=== PATIENT | female | born 1955 | race Two or more races ===

== ENCOUNTER 2019-11-11 19:58 | Emergency (ER) | payer SELFPAY ==
[~2019-11-11] VITALS: Ht 162.6 cm; Wt 68.0 kg
[2019-11-11 20:00] VITALS: BP 124/68
[2019-11-11] MEDS ORDERED: LORazepam Inj 2mg/ml 1ml IV ONE (20:00)
[2019-11-11] MEDS ORDERED: Metoclopramide 10mg/2ml Inj IVP ONE (20:00)
[2019-11-11] MEDS ORDERED: Meclizine 25mg tab ORAL PRN (20:00)
--- NOTE | 2019-11-11 20:00 | NUR ---
ED Nurse Note: Pt brought into ED from home by DENEEN RA 26 for c/o N/V onset today. Pt went to clinic today for same complaint and was sent home and had no relief. Pt also reports tingling and pain in L leg. Pt is able to move L leg and pedal pulses are present. Pt appears anxious. Pt was given 4mg zofran PO en route by [facility] medic. Pt is aaox4, breathing is normal and unlabored. Vital signs are stable. No cough, SOB or fever noted. Pt connected to national sales associate with all safety measures in place. Will continue to montior.
[2019-11-11] MEDS ORDERED: Meclizine 25mg tab ONE (20:16)
[2019-11-11] MEDS ORDERED: LORazepam Inj 2mg/ml 1ml ONE (20:16)
[2019-11-11] MEDS ORDERED: Metoclopramide 10mg/2ml Inj ONE (20:16)
--- NOTE | 2019-11-11 20:19 | Emergency Room Report ---
History of Present Illness General Chief Complaint: Behavioral Complaint Source: Patient, EMS Present Illness HPI Patient is a 64-year-old female past medical history of diabetes who presents to the ER complaining of nausea and vomiting for the past 9 days. Patient states that she has dizziness where she feels a room spinning sensation associated with nausea and vomiting. Patient states that she went to [facility] where they discharged her without any medications. Patient denies any fever or chills. She complains of generalized weakness. Patient appears anxious. She denies any chest pain or shortness of breath. She complains of an acid type feeling in her throat. She denies any focal weakness. Patient was brought in by EMS. 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 COVID-19 Screening: Negative COVID-19 COVID-19 Testing Source: UNKNOWN CLINIC Patient History Now: No Reviewed Nursing Documentation: PMH: Agreed; PSxH: Agreed Nursing Documentation-PMH Hx Cardiac Problems: No Hx Hypertension: No Hx Pacemaker: No Hx Asthma: No Hx COPD: No Hx Diabetes: Yes Hx Cancer: No Hx Gastrointestinal Problems: No Hx Dialysis: No History Of Psychiatric Problem: No Hx Neurological Problems: No Hx Cerebrovascular Accident: No Hx Seizures: No Review of Systems All Other Systems: negative except mentioned in HPI Physical Exam Vital Signs Date Time Temp Pulse Resp B/P (MAP) Pulse Ox O2 Delivery O2 Flow Rate FiO2 11/11/19 19:53 85 16 124/68 (86) 100 Room Air Sp02 EP Interpretation: reviewed, normal General Appearance: alert, GCS 15, non-toxic, mild distress Head: normocephalic, atraumatic Eyes: bilateral eye normal inspection, bilateral eye PERRL ENT: hearing grossly normal, normal pharynx, no angioedema, normal voice, dry mucus membranes Neck: full range of motion, supple/symm/no masses Respiratory: chest non-tender, lungs clear, normal breath sounds, speaking full sentences Cardiovascular #1: regular rate, rhythm, no edema Cardiovascular #2: 2+ carotid (R), 2+ carotid (L) Gastrointestinal: normal bowel sounds, non tender, soft, non-distended, no guarding, no rebound Rectal: deferred Genitourinary: normal inspection, no CVA tenderness Musculoskeletal: normal range of motion Neurologic: family court counsellor III-XII nml as tested, oriented x3 Psychiatric: anxious Skin: no rash Lymphatic: no adenopathy Medical Decision Making Diagnostic Impression: Primary Impression: Vertigo Additional Impressions: Nausea and vomiting Hypokalemia ER Course Patient given IV fluids, Reglan, 1 mg of Ativan and 50 mg of meclizine. On reevaluation at 9:20 PM patient states that she feels much improved. She states that her dizziness, nausea and vomiting have resolved. She no longer appears anxious. Awaiting her labs and UA. Patient's CT brain demonstrates no acute intracranial pathology Patient's chemistry demonstrates mild hypokalemia with potassium of 3.2. 40 mEq of oral potassium chloride have been ordered. Patient CT demonstrates no acute intracranial pathology. Patient is tolerating p.o. and ambulating without difficulty. She is being discharged home with prescription for meclizine as well as Reglan. After discussing risks and benefits of further diagnostics, treatment plans, as well as indications for and risks of admission , the patient is agreeable to being discharged home. I have explained that their evaluation and treatment in the emergency department today is an important step towards them achieving better health but that their evaluation today is not intended to replace further evaluation and treatment by a physician in their local clinic. I have explained that while the current findings suggest no immediate life threatening emergency they will require further evaluation and treatment by a physician of their choice in their area. They understand that it will be necessary for them to review the final reports of their ED visit with their clinic physician. We have reviewed indications for return to the Emergency Department. I have explained that additional time may need to pass and/or additional testing as an outpatient may be necessary before a definitive diagnosis can be made. They tell me they are willing to follow up as instructed within the timeframe I recommend. They appear to understand what we discussed. Additionally they understand that if they are unable to be seen by an outpatient physician they are welcome, and in fact should, return to the Emergency Department for a repeat evaluation. The patient is stable at time of discharge.. Laboratory Tests Test 11/11/19 20:09 White Blood Count 6.1 K/UL (4.8-10.8) Red Blood Count 4.56 M/UL (4.20-5.40) Hemoglobin 12.9 G/DL (12.0-16.0) Hematocrit 39.0 % (37.0-47.0) Mean Corpuscular Volume 86 FL (80-99) Mean Corpuscular Hemoglobin 28.3 PG (27.0-31.0) Mean Corpuscular Hemoglobin Concent 33.1 G/DL (32.0-36.0) Red Cell Distribution Width 12.4 % (11.6-14.8) Platelet Count 172 K/UL (150-450) Mean Platelet Volume 8.2 FL (6.5-10.1) Neutrophils (%) (Auto) 62.6 % (45.0-75.0) Lymphocytes (%) (Auto) 30.5 % (20.0-45.0) Monocytes (%) (Auto) 5.7 % (1.0-10.0) Eosinophils (%) (Auto) 0.4 % (0.0-3.0) Basophils (%) (Auto) 0.8 % (0.0-2.0) Sodium Level 139 MMOL/L (136-145) Potassium Level 3.2 MMOL/L (3.5-5.1) L Chloride Level 100 MMOL/L (98-107) Carbon Dioxide Level 26 MMOL/L (21-32) Anion Gap 13 mmol/L (5-15) Blood Urea Nitrogen 22 mg/dL (7-18) H Creatinine 0.7 MG/DL (0.55-1.30) Estimated Glomerular Filtration Rate > 60 mL/min (>60) Glucose Level 211 MG/DL (74-106) H Calcium Level 8.7 MG/DL (8.5-10.1) Magnesium Level 2.2 MG/DL (1.8-2.4) Total Bilirubin 0.8 MG/DL (0.2-1.0) Aspartate Amino Transferase (AST) 30 U/L (15-37) Alanine Aminotransferase (ALT) 16 U/L (12-78) Alkaline Phosphatase 62 U/L (46-116) Troponin I 0.000 ng/mL (0.000-0.056) Total Protein 8.5 G/DL (6.4-8.2) H Albumin 3.4 G/DL (3.4-5.0) Globulin 5.1 g/dL Albumin/Globulin Ratio 0.7 (1.0-2.7) L EKG Diagnostic Results EKG Time: 20:48 EP Interpretation: Kelli Thomas MD Rate: normal - 85 bpm Rhythm: NSR ST Segments: no acute changes ASA given to the pt in ED: No Rhythm Strip Diag. Results Rhythm Strip Time: 20:19 EP Interpretation: yes - Kelli Thomas MD Rate: 74 bpm Rhythm: NSR Last Vital Signs Date Time Temp Pulse Resp B/P (MAP) Pulse Ox O2 Delivery O2 Flow Rate FiO2 11/11/19 19:53 85 16 124/68 (86) 100 Room Air Disposition: HOME, SELF-CARE Condition: Stable Scripts Metoclopramide Hcl* (REGLAN*) 10 Mg Tablet 10 MG ORAL THREE TIMES A DAY, #20 TAB Prov: Kelli Thomas M.D. 11/11/19 Meclizine Hcl* (MECLIZINE*) 25 Mg Tablet 25 MG ORAL THREE TIMES A DAY, #20 TAB Prov: Kelli Thomas M.D. 11/11/19 Additional Instructions: The patient was provided with discharge instructions, notified to follow-up with a primary care doctor and or specialist in the next 24-48 hours, and to return to the ED if they have worsening of their symptoms. Please note that this report is being documented using [employer] technology. This can lead to erroneous entry secondary to incorrect interpretation by the dictating instrument. Kelli Thomas M.D. Nov 11, 2019 20:19
--- NOTE | 2019-11-11 20:38 | Diagnostic Imaging Report ---
EXAM: CT Head Without Intravenous Contrast CLINICAL HISTORY: DIZZY TECHNIQUE: Axial computed tomography images of the head/brain without intravenous contrast. CTDI is 53 mGy and DLP is 970 mGy-cm. One or more of the following dose reduction techniques were used: automated exposure control, adjustment of the mA and/or kV according to patient size, use of iterative reconstruction technique. COMPARISON: None FINDINGS: Brain: Unremarkable. No hemorrhage. No significant white matter disease. No edema. Ventricles: Unremarkable. No ventriculomegaly. Bones/joints: Unremarkable. No acute fracture. Soft tissues: Unremarkable. Sinuses: There is ethmoid sinus mucosal thickening. Mastoid air cells: Unremarkable as visualized. No mastoid effusion. IMPRESSION: No acute intracranial process.
[2019-11-11 21:17] LABS: BASOPHILS % (AUTO) 0.8 % (0.0-2.0); EOSINOPHILS % (AUTO) 0.4 % (0.0-3.0); HEMOGLOBIN 12.9 G/DL (12.0-16.0); LYMPHOCYTES % (AUTO) 30.5 % (20.0-45.0); MEAN CORPUSCULAR VOLUME 86 FL (80-99); MONOCYTES % (AUTO) 5.7 % (1.0-10.0); NEUTROPHILS % (AUTO) 62.6 % (45.0-75.0); PLATELET COUNT 172 K/UL (150-450); RED BLOOD COUNT 4.56 M/UL (4.20-5.40); RED CELL DISTRIBUTION WIDTH 12.4 % (11.6-14.8); WHITE BLOOD COUNT 6.1 K/UL (4.8-10.8)
[2019-11-11 21:20] VITALS: BP 141/49
--- NOTE | 2019-11-11 21:20 | NUR ---
ED Nurse Note: Pt states she is feeling much better. She does not appear anxious anymore. Pt provided with warm blankets for comfort. VSS. NAD. Will continue to montior.
[2019-11-11 21:45] LABS: ANION GAP 13 mmol/L (5-15); BLOOD UREA NITROGEN 22 mg/dL (7-18); CARBON DIOXIDE 26 MMOL/L (21-32); CHLORIDE 100 MMOL/L (98-107); CREATININE 0.7 MG/DL (0.55-1.30); POTASSIUM 3.2 MMOL/L (3.5-5.1); SODIUM 139 MMOL/L (136-145)
[2019-11-11 21:47] LABS: ALANINE AMINOTRANSFERASE 16 U/L (12-78); ALBUMIN 3.4 G/DL (3.4-5.0); ALBUMIN/GLOBULIN RATIO 0.7 (1.0-2.7); ALKALINE PHOSPHATASE 62 U/L (46-116); ASPARTATE AMINO TRANSFERASE 30 U/L (15-37); BILIRUBIN,TOTAL 0.8 MG/DL (0.2-1.0)
--- NOTE | 2019-11-11 21:55 | NUR ---
ED Nurse Note: ERMD is ok with pt not being able to provide urine sample at this time.
[2019-11-11 22:01] LABS: CALCIUM 8.7 MG/DL (8.5-10.1)
[2019-11-11] MEDS ORDERED: MECLIZINE HCL25 MG ORAL (22:06)
[2019-11-11] MEDS ORDERED: REGLAN10 MG ORAL (22:07)
[2019-11-11 23:00] VITALS: BP 130/66
--- NOTE | 2019-11-11 23:00 | NUR ---
ER DISCHARGE NOTE: Patient is cleared to be discharged per ERMD, pt is aox4, on room air, with stable vital signs. pt was given dc and prescription instructions, pt was able to verbalize understanding, pt id band and iv site removed without complications. pt is able to ambulate with steady gait. pt took all belongings.
--- NOTE | 2019-11-12 13:17 | Diagnostic Imaging Report ---
Indication: Chest pain Technique: One view of the chest Comparison: none Findings: Lungs and pleural spaces are clear. Heart size is normal. Impression: No acute process
== END 2019-11-11 23:00 | disposition home or self-care (01) ==
LOC: EDBD 19:58 → EMR 21:25
DX: R42 Dizziness and giddiness (principal); R11.2 Nausea with vomiting, unspecified; E87.6 Hypokalemia; E11.9 Type 2 diabetes mellitus without complications
CPT/HCPCS: 36415; 70450; 71045; 80053; 83735; 84484; 85025; 93005; 96361; 96374; 96375; 99284; J2765; J7030; J8499